=== PATIENT | female | born 1955 | race Caucasian/White ===

== ENCOUNTER 2017-07-29 15:23 | Observation (INO) ==
[2017-07-29] MEDS ORDERED: Ondansetron 4 MG/2 ML VIAL IVP ONE (16:04)
[2017-07-29] MEDS ORDERED: 0.9 % Sodium Chloride 1,000 ML IVC ONE (16:04)
--- NOTE | 2017-07-29 16:06 | Emergency Department Note ---
Disposition Clinical Impression: Nausea vomiting and diarrhea Disposition: Admitted As Inpatient Condition: Fair Referrals: NONE,PCP [Primary Care Provider] - Forms: ED Satisfaction Letter, Work/School Release Time of Disposition: 19:19 Abdominal Pain HPI - General Chief Complaint: ED Abdominal Pain Stated Complaint: N/V/D, abd pain Time Seen by Provider: 07/29/17 15:54 Source: patient Mode of arrival: ambulatory Limitations: no limitations Nursing Notes Reviewed: Yes Vital Signs Reviewed: Yes - History of Present Illness HPI Narrative: 61-year-old who is status post remote renal transplant comes in with nausea vomiting unable keep anything down. She states she felt fine yesterday. Pt Subjective Complaint: abdominal pain Onset (ago): hour(s) Consistency: constant Location: diffuse Pain Severity: moderate Pain Scale: 10 Quality: cramping Radiation: none Migration to: no migration Improves with: nothing Worsens with: nothing Associated symptoms: Reports: nausea, vomiting, diarrhea. Denies: fever Treatments prior to arrival: none - Related Data Allergies Allergy/AdvReac Type Severity Reaction Status Date / Time IVP dye Allergy See Uncoded 07/29/17 15:51 Comments All systems ED: reviewed and negative except as stated. Constitutional: Denies: fever, chills, weakness, weight change Eyes: Denies: eye pain, eye discharge, vision change ENT ED: Denies: ear pain, throat pain, dental pain, hearing loss, epistaxis, congestion, dysphagia Cardiovascular: Denies: chest pain, palpitations, dyspnea on exertion, edema, syncope Respiratory: Denies: cough, dyspnea, wheezes, hemoptysis, stridor Gastrointestinal: Reports: abdominal pain, nausea, vomiting, diarrhea. Denies: constipation, hematemesis, melena, hematochezia Genitourinary: Denies: dysuria, frequency, hematuria, discharge Musculoskeletal: Denies: back pain, neck pain, arthralgia, myalgia Integumentary: Denies: rash, abrasion, lesions Neurological: Denies: headache, weakness, numbness, paresthesias, confusion, abnormal gait, vertigo Psychiatric: Denies: anxiety, depression, suicidal thoughts, homicidal thoughts , auditory hallucinations, visual hallucinations Endocrine: Denies: fatigue Hematological/Lymphatic: Denies: easy bleeding, easy bruising Allergic/Immunologic: Denies: facial swelling, urticaria Abdominal Pain PMH - Past Medical History Medical history: Reports: hypertension, renal disease Psychiatric history: Reports: no psych history - Social History Smoking status: Never smoker Alcohol use: Reports: none Drug use: Reports: none Physical Exam - General Limitations: no limitations General appearance: alert, in no apparent distress - Head Head exam: atraumatic, normocephalic, normal inspection - Eye Eye exam: Present: normal appearance, PERRL, EOMI - ENT ENT exam: normal exam, normal oropharynx, mucous membranes moist - Neck Neck exam: Present: normal inspection, full ROM, trachea midline - Chest Chest inspection: Present: normal inspection, symmetric chest wall rise - Respiratory Respiratory exam: Present: normal lung sounds bilaterally - Cardiovascular Cardiovascular exam: Present: regular rate, normal rhythm, normal heart sounds - Abdominal Exam Abdominal exam: Present: soft, tenderness. Absent: guarding, rebound Abdominal tenderness: Present: diffuse - Extremities Exam Extremities exam: Present: normal inspection, full ROM. Absent: tenderness, pedal edema - Expanded Lower Extremity Exam Neurovascular/Tendon exam: Absent: motor deficit, sensory deficit, tendon deficit Gait: observed and normal - Back Exam Back exam: Present: normal inspection, full ROM. Absent: tenderness - Neurological Exam Neurological exam: Present: alert, oriented X3 - Psychiatric Psychiatric exam: Present: normal affect, normal mood - Skin Skin exam: Present: warm, dry, intact, normal color Course - Reevaluation(s) Reevaluation #1: 61-year-old with persistent nausea vomiting and diarrhea. Appears to be a viral syndrome will admit for IV hydration. Time: 19:47 - Consultations Consultation #1: Discussed with Dr. Brandt, admit. Time: 19:48 Vital Signs Temperature 97.8 F 07/29/17 15:49 Pulse Rate 104 07/29/17 15:49 Respiratory Rate 18 07/29/17 15:49 Blood Pressure 105/70 07/29/17 15:49 O2 Sat by Pulse Oximetry 98 07/29/17 15:49 Temperature 97.8 F 07/29/17 15:49 Pulse Rate 104 07/29/17 15:49 Respiratory Rate 18 07/29/17 15:49 Blood Pressure 105/70 07/29/17 15:49 O2 Sat by Pulse Oximetry 98 07/29/17 15:49 Oxygen Delivery Oxygen Delivery Room Air Abdominal Pain - Lab Data Lab results reviewed: Yes I reviewed the patient's lab results. Result diagrams: 07/29/17 16:25 07/29/17 18:52 Lab Results 07/29/17 07/29/17 07/29/17 Range/Units 16:25 17:09 17:36 WBC 7.1 (4.3-11.1) K/mcL RBC 4.63 (3.82-4.97) M/mcL Hgb 14.2 (11.5-15.4) g/dL Hct 43.5 (35.3-44.9) % MCV 94.0 (83.0-100.0) fL MCH 30.7 (28.0-33.3) pg MCHC 32.6 (31.6-35.5) g/dL RDW 16.2 H (11.5-14.5) % Plt Count 227 (140-400) K/mcL MPV 10.7 (9.4-12.4) fL Immature Gran % 0.3 (0-4) % Seg Neutrophils % 85.9 % Lymphocytes % 7.8 % Monocytes % 4.8 % Eosinophils % 1.1 % Basophils % 0.1 % Neutrophils # 6.1 (1.6-8.9) K/mcL Lymphocytes # 0.6 (0.6-4.6) K/mcL Monocytes # 0.3 (0.0-1.3) K/mcL Eosinophils # 0.1 (0.0-0.6) K/mcL Basophils # 0.0 (0.0-0.2) K/mcL Sodium (136-145) mEq/L Potassium (3.5-5.1) mEq/L Chloride (98-107) mEq/L Carbon Dioxide (23-29) mEq/L BUN (6-20) mg/dL Creatinine (0.60-1.20) mg/dL Est GFR ( Amer) (> 60) Est GFR (Non-Af Amer) (> 60) BUN/Creatinine Ratio (6-26) Glucose (70-105) mg/dL Calculated Osmolality (280-300) Calcium (8.6-10.3) mg/dL Total Bilirubin (0.3-1.0) mg/dL Direct Bilirubin (0.0-0.2) mg/dL Indirect Bilirubin (0.0-1.2) mg/dL AST (13-39) Units/L ALT (7-52) Units/L Alkaline Phosphatase (34-104) Units/L Serum Total Protein (6.4-8.9) g/dL Albumin (3.5-5.7) g/dL Globulin (2.4-3.5) g/dL Albumin/Globulin Ratio (1.1-2.2) Amylase (29-103) Units/L Lipase (11-82) Units/L Urine Color (Yellow) Urine Clarity (Clear) Urine pH (5.0-8.0) pH Units Ur Specific [place] (1.010-1.025) Urine Protein (Neg-Trace) mg/dL Urine Glucose (UA) (Normal) mg/dL Urine Ketones (Negative) mg/dL Urine Blood (Negative) Urine Nitrite (Negative) Urine Bilirubin (Negative) Urine Urobilinogen (Normal) mg/dL Ur Leukocyte Esterase (Negative) Stl C. diff Tox B Gene Negative (Negative) Specimen Rejected Hemolyzed 07/29/17 07/29/17 Range/Units 18:52 19:25 WBC (4.3-11.1) K/mcL RBC (3.82-4.97) M/mcL Hgb (11.5-15.4) g/dL Hct (35.3-44.9) % MCV (83.0-100.0) fL MCH (28.0-33.3) pg MCHC (31.6-35.5) g/dL RDW (11.5-14.5) % Plt Count (140-400) K/mcL MPV (9.4-12.4) fL Immature Gran % (0-4) % Seg Neutrophils % % Lymphocytes % % Monocytes % % Eosinophils % % Basophils % % Neutrophils # (1.6-8.9) K/mcL Lymphocytes # (0.6-4.6) K/mcL Monocytes # (0.0-1.3) K/mcL Eosinophils # (0.0-0.6) K/mcL Basophils # (0.0-0.2) K/mcL Sodium 140 (136-145) mEq/L Potassium 4.0 (3.5-5.1) mEq/L Chloride 109 H (98-107) mEq/L Carbon Dioxide 21 L (23-29) mEq/L BUN 46 H (6-20) mg/dL Creatinine 1.11 (0.60-1.20) mg/dL Est GFR ( Amer) > 60 (> 60) Est GFR (Non-Af Amer) 50 L (> 60) BUN/Creatinine Ratio 41 H (6-26) Glucose 156 H (70-105) mg/dL Calculated Osmolality 305 H (280-300) Calcium 7.7 L (8.6-10.3) mg/dL Total Bilirubin 0.9 (0.3-1.0) mg/dL Direct Bilirubin 0.2 (0.0-0.2) mg/dL Indirect Bilirubin 0.7 (0.0-1.2) mg/dL AST 15 (13-39) Units/L ALT 18 (7-52) Units/L Alkaline Phosphatase 78 (34-104) Units/L Serum Total Protein 6.3 L (6.4-8.9) g/dL Albumin 3.8 (3.5-5.7) g/dL Globulin 2.5 (2.4-3.5) g/dL Albumin/Globulin Ratio 1.5 (1.1-2.2) Amylase 51 (29-103) Units/L Lipase 63 (11-82) Units/L Urine Color Yellow (Yellow) Urine Clarity Cloudy A (Clear) Urine pH 5.0 (5.0-8.0) pH Units Ur Specific [place] 1.019 (1.010-1.025) Urine Protein Negative (Neg-Trace) mg/dL Urine Glucose (UA) Normal (Normal) mg/dL Urine Ketones Negative (Negative) mg/dL Urine Blood Negative (Negative) Urine Nitrite Negative (Negative) Urine Bilirubin Negative (Negative) Urine Urobilinogen Normal (Normal) mg/dL Ur Leukocyte Esterase Trace H (Negative) Stl C. diff Tox B Gene (Negative) Specimen Rejected - Radiology Data Radiology results reviewed: Yes I reviewed the patient's radiology results. Abdomen/Pelvis CT 07/29/17 16:04 IMPRESSION: Large hiatal hernia. Left lower lobe consolidation adjacent to the large hiatal hernia, possibly chronic atelectasis. Correlation for pneumonia is recommended. Mild fatty infiltration of the liver. Cholelithiasis. D/ / Libby Godoy Cha, MD / Libby Godoy Cha, MD Interpreting Provider: Libby Godoy Cha, MD
[2017-07-29 16:37] LABS: Basophils % 0.1 %; Eosinophils # 0.1 K/mcL (0.0-0.6); Eosinophils % 1.1 %; Hematocrit 43.5 % (35.3-44.9); Hemoglobin 14.2 g/dL (11.5-15.4); Immature Granulocytes % 0.3 % (0-4); Lymphocytes # 0.6 K/mcL (0.6-4.6); Lymphocytes % 7.8 %; Mean Corpuscular HGB Conc 32.6 g/dL (31.6-35.5); Mean Corpuscular Hemoglobin 30.7 pg (28.0-33.3); Mean Platelet Volume 10.7 fL (9.4-12.4); Monocytes # 0.3 K/mcL (0.0-1.3); Monocytes % 4.8 %; Neutrophils # 6.1 K/mcL (1.6-8.9); Platelet Count 227 K/mcL (140-400); Red Blood Count 4.63 M/mcL (3.82-4.97); Red Cell Distribution Width 16.2 % (11.5-14.5); Segmented Neutrophils % 85.9 %
[2017-07-29 19:13] LABS: Alanine Aminotransferase 18 Units/L (7-52); Albumin 3.8 g/dL (3.5-5.7); Albumin/Globulin Ratio 1.5 (1.1-2.2); Alkaline Phosphatase 78 Units/L (34-104); Amylase 51 Units/L (29-103); Aspartate Amino Transferase 15 Units/L (13-39); BUN/Creatinine Ratio 41 (6-26); Bilirubin,Direct 0.2 mg/dL (0.0-0.2); Bilirubin,Indirect 0.7 mg/dL (0.0-1.2); Bilirubin,Total 0.9 mg/dL (0.3-1.0); Blood Urea Nitrogen 46 mg/dL (6-20); Calcium 7.7 mg/dL (8.6-10.3); Carbon Dioxide 21 mEq/L (23-29); Chloride 109 mEq/L (98-107); Globulin 2.5 g/dL (2.4-3.5); Glucose 156 mg/dL (70-105); Lipase 63 Units/L (11-82); Osmolality,Calculated 305 (280-300); Sodium 140 mEq/L (136-145); Total Protein 6.3 g/dL (6.4-8.9); eGFR For African Americans > 60 (> 60); eGFR For Non-African Americans 50 (> 60)
[2017-07-29] MEDS ORDERED: *HR* FentaNYL (PF) 100 MCG/2 ML VIAL IVP ONE (19:43)
[2017-07-29] MEDS ORDERED: Acetaminophen 325 MG TABLET PO PRN (19:45)
[2017-07-29] MEDS ORDERED: *HR* Promethazine 25 MG/ML VIAL IVP PRN (19:45)
[2017-07-29] MEDS ORDERED: Ondansetron 4 MG/2 ML VIAL IVP PRN (19:45)
[2017-07-29] MEDS ORDERED: Mag Hydrox/Al Hydrox/Simeth 30 ML UDC PO PRN (19:45)
[2017-07-29] MEDS ORDERED: Naloxone 0.4 MG/ML INJ IVP PRN (19:45)
[2017-07-29] MEDS ORDERED: *HR* HYDROcodone/Acet 5/325 mg TABLET PO PRN (19:45)
[2017-07-29 19:46] LABS: Bilirubin,Urine Negative (Negative); Blood,Urine Negative (Negative); Clarity,Urine Cloudy (Clear); Color,Urine Yellow (Yellow); Glucose,Urine (UA) Normal (Normal); Ketones,Urine Negative (Negative); Leukocyte Esterase,Urine Trace (Negative); Nitrite,Urine Negative (Negative); Protein,Urine Negative (Neg-Trace); Specific Gravity,Urine 1.019 (1.010-1.025); Urobilinogen,Urine Normal (Normal)
[2017-07-29 19:48] LABS: Hyaline Casts,Urine Few per lpf (None-Few); RBC,Urine 0-3 per hpf (0-3); Squamous Epithelial Cell,Urine Many per lpf (None-Few); WBC,Urine 0-3 per hpf (0-3)
[2017-07-29] MEDS: 0.9 % Sodium Chloride 1,000 ML IVC SCH (19:51)
[2017-07-29 20:05] LABS: Bacteria,Urine Moderate per hpf (None-Few)
--- NOTE | 2017-07-29 21:52 | Internal Med History&Physical ---
Date of Encounter: 07/29/17 Time of Encounter: 20:00 Assessment and Plan (1) Nausea vomiting and diarrhea Current visit: Yes Status: Acute Placed the pt into Med Surg for observation Her symptoms seems to be due to viral gastroenteritis cont symptomatic and supportive care we will place on IV hydration on Zofran PRN PO analgesics PRN clear liquid diet (2) Abdominal pain Current visit: Yes Status: Acute epigastric abd pain.. ?? Gastritis however with cholelithiasis, will check U/S of RUQ so far negative lipase and LFT's Qualifiers: Abdominal location: epigastric Qualified Code(s): R10.13 - Epigastric pain (3) Cholelithiasis Current visit: Yes Status: Acute Qualifiers: Qualified Code(s): K80.20 - Calculus of gallbladder without cholecystitis without obstruction (4) Renal transplant, status post Current visit: Yes Status: Acute resume home meds since pt is not able to tolerate PO meds..will switch to IV Solumedrol 20 BID stable Cr (5) HTN (hypertension) Current visit: Yes Status: Acute will resume home meds Qualifiers: Hypertension type: essential hypertension Qualified Code(s): I10 - Essential (primary) hypertension Internal Medicine - H&P: HPI Chief complaint: N/V and Abdominal pain Admitted From: Emergency Dept Plans for Post Hospital Care: Home History of present illness: Ms. Swenson is a 61 year old female with congenital renal disease , s/p Rt renal transplant in currently on chronic immunosuppressive medication with prednisone , now presented to ER with intractable nausea and vomiting with epigastric abdominal pain. She denied any CP / SOB. Her abd pain 4/10 in severity , non radiating, and achy type pain. Her Lipase level @ 63, LFT's are normal. Her CT of abd showed LLL consolidation possible atelectasis vs pneumonia , she does have fatty liver and cholelithiasis. Past Med Surg Social Fam HX - Past Medical History Medical history: hypertension, renal disease Psychiatric history: no psych history - Past Surgical History Surgical History: transplant - Social History Smoking Status: Never smoker Smokeless Tobacco Status: No Alcohol use: none Drug use: none - Family History Mother Living Status: Hx Family Cardiac Disorders: Yes (chf) Hx Family Respiratory Disorders: Yes (copd) Father Living Status: Hx Family Cancer: Yes (lung cancer) Internal Medicine - H&P: Meds 3 Allergy/AdvReac Type Severity Reaction Status Date / Time IVP dye Allergy See Uncoded 07/29/17 15:51 Comments All Systems PM: A 10-system review of systems was performed and is negative for pertinent findings except as documented above in the HPI. Review of systems: All the systems are reviewed everything is benign except the systems and symptoms I mentioned in the history of present illness - Constitutional Vitals: Temp Pulse Resp BP Pulse Ox 98.0 F 104 18 126/81 95 07/29/17 20:36 07/29/17 20:36 07/29/17 20:36 07/29/17 20:36 07/29/17 20:36 General appearance: Present: cooperative, A&O X 3, answers questions appropriately - Head Head exam: Present: atraumatic, normal inspection - Neck Neck exam general surgery: Present: supple - Respiratory Respiratory exam: Present: CTAB. Absent: accessory muscle use, rales, rhonchi, wheezes - Cardiovascular Cardiovascular exam: Present: RRR, +S1, +S2. Absent: diastolic murmur, gallop, rubs, systolic murmur - GI/Abdominal GI/Abdominal exam: Present: normal bowel sounds, soft, tenderness (epigastric region.. Negative martínez's sign). Absent: distended, guarding, rebound, rigid - Extremities Exam Extremities exam: Absent: calf tenderness, pedal edema, tenderness - Back Exam Back exam: Absent: CVA tenderness (L), CVA tenderness (R) - Neurological Exam Neurological exam: Present: alert, oriented X3 - Psychiatric Psychiatric exam: Present: normal affect, normal mood - Skin Skin exam: Absent: rash Internal Med - H&P Results - Labs CBC & Chem 7: 07/29/17 16:25 07/29/17 18:52
[2017-07-29] MEDS ORDERED: *HR* FentaNYL (PF) 100 MCG/2 ML VIAL IVP PRN (22:02)
[2017-07-29] MEDS: MethylPREDNISolone 40 MG/ML VIAL IVP SCH (22:26)
[2017-07-29] MEDS: Pantoprazole 40 MG VIAL IVP SCH (22:26)
[2017-07-30 05:23] LABS: Basophils % 0.1 %; Eosinophils % 0.1 %; Hematocrit 31.5 % (35.3-44.9); Immature Granulocytes % 0.6 % (0-4); Lymphocytes # 0.6 K/mcL (0.6-4.6); Lymphocytes % 8.2 %; Mean Corpuscular HGB Conc 33.7 g/dL (31.6-35.5); Mean Corpuscular Volume 92.1 fL (83.0-100.0); Mean Platelet Volume 11.3 fL (9.4-12.4); Monocytes # 0.2 K/mcL (0.0-1.3); Monocytes % 2.6 %; Nucleated Red Blood Cells 0.3 /100 WBC (0); Platelet Count 119 K/mcL (140-400); Red Blood Count 3.42 M/mcL (3.82-4.97); Segmented Neutrophils % 88.4 %
[2017-07-30] MEDS: 0.9 % Sodium Chloride 1,000 ML IVC SCH ×2 (05:37→18:22)
[2017-07-30] MEDS: Pantoprazole 40 MG VIAL IVP SCH ×2 (05:37→18:20)
[2017-07-30 05:43] LABS: Neutrophils # 6.3 K/mcL (1.6-8.9)
[2017-07-30 05:44] LABS: Hemoglobin 10.6 g/dL (11.5-15.4)
[2017-07-30 05:46] LABS: Platelet Estimate Slight Decrease (Normal)
[2017-07-30 05:47] LABS: Anisocytosis 1+ (Not Present)
[2017-07-30 05:48] LABS: Albumin 3.2 g/dL (3.5-5.7); Albumin/Globulin Ratio 1.5 (1.1-2.2); Bilirubin,Total 0.9 mg/dL (0.3-1.0); Globulin 2.2 g/dL (2.4-3.5); Magnesium 1.1 mg/dL (1.6-2.6); Phosphorous 3.6 mg/dL (2.7-4.5); Potassium 4.4 mEq/L (3.5-5.1); Total Protein 5.4 g/dL (6.4-8.9)
[2017-07-30] MEDS: MethylPREDNISolone 40 MG/ML VIAL IVP SCH (09:58)
--- NOTE | 2017-07-30 11:34 | Internal Med Progress Note ---
<Leif Guardado - Last Filed: 07/30/17 13:35> Date of Encounter: 07/30/17 Time of Encounter: 11:30 - Assessment and plan (1) Viral gastroenteritis Current Visit: Yes Status: Acute Assessment and plan: Symptoms of nausea, vomiting, diarrhea improved with IV fluids and supportive care. Abdominal CT demonstrated large hiatal hernia, left lower lobe consolidation adjacent to the large hiatal hernia possible pneumonia versus atelectasis, mild fatty infiltration of liver, cholelithiasis. Her symptoms likely secondary to viral gastroenteritis cont symptomatic and supportive care Continue IV hydration Continue PPI PO analgesics PRN Patient tolerating clear liquid diet Reconcile home medications Plan for discharge tomorrow. Follow-up outpatient with [facility], PCP. (2) Abdominal pain Current visit: Yes Status: Acute negative lipase and LFT's RUQ abdominal pain likely secondary to gastritis. however with cholelithiasis, follow up on RUQ ultrasound. Qualifiers: Abdominal location: epigastric Qualified Code(s): R10.13 - Epigastric pain (3) Cholelithiasis Current visit: Yes Status: Acute Qualifiers: Qualified Code(s): K80.20 - Calculus of gallbladder without cholecystitis without obstruction Plan as above. (4) Renal transplant, status post Current visit: Yes Status: Acute Patient tolerating PO. Resume home meds Continue to monitor renal function with AM labs. (5) HTN (hypertension) Current visit: Yes Status: Acute will resume home meds (2) Acute kidney injury Current Visit: Yes Status: Acute Assessment and plan: Suspected ABRIL. No baseline creatinine obtainable from records, but creatinine increased > 0.3 compared to yesterday. This could likely be due to IV fluids (3) Drop in hematocrit Current Visit: Yes Status: Acute Assessment and plan: Hemoglobin 14.2/10.6. Likely secondary to IV fluids. Continue to monitor with a.m. labs. No need for acute management at this time (4) DVT prophylaxis Current Visit: Yes Status: Acute Assessment and plan: Patient's H/H drop likely secondary to IVF. Continue to monitor with AM Labs. Heparin for DVT prophylaxis for now. - Time Spent With Patient Greater than 35 minutes - Subjective Interval history: 61-year-old female with past medical history of congenital renal disease, status post right renal transplant in the currently on chronic immunosuppressive medication with prednisone, fatty liver, cholelithiasis, presents with intractable nausea and vomiting for 1 day and epigastric abdominal pain 4 out of 10, nonradiating, achy. Today, she reports improvement of symptoms. She has not vomited since admission. Reports vomit from previous day was nonbilious. She denies any fevers, chills, chest pain, shortness of breath, cough, constipation. She reports improvement of epigastric abdominal pain. Currently 2 out of 10. Denies any history of pulmonary disease. Tolerating clear liquid diet and voiding without difficulty. Last bowel movement was last night and he was watery. Denies noticing any bright blood. Has no further complaints. - Constitutional Vitals: Temp Pulse Resp BP Pulse Ox 98.2 F 97 14 152/79 95 07/30/17 11:16 07/30/17 11:16 07/30/17 11:16 07/30/17 11:16 07/30/17 11:16 General appearance: Present: cooperative, A&O X 3, answers questions appropriately - Head Head exam: Present: atraumatic, normocephalic - Eye Eye exam: Present: PERRL, conjuntiva pink, sclera anicteric Pupils: Present: PERRL - Neck Neck exam general surgery: Present: supple, trachea midline. Absent: lymphadenopathy - Respiratory Respiratory exam: Present: CTAB. Absent: accessory muscle use, rales, rhonchi, wheezes - Cardiovascular Cardiovascular exam: Present: RRR, +S1, +S2. Absent: diastolic murmur, gallop, rubs, systolic murmur - GI/Abdominal GI/Abdominal exam: Present: normal bowel sounds, soft, no peritoneal signs. Absent: distended, tenderness - Extremities Exam Extremities exam: Present: warm, radial pulses palpable and symmetrical. Absent : calf tenderness, cyanotic, pedal edema - Neurological Exam Neurological exam: Present: CN II-XII intact, oriented X3, no focal deficits. Absent: pronater drift, facial droop, speech deficit - Skin Skin exam: Present: dry, intact Internal Medicine: Result - Labs CBC & Chem 7: 07/30/17 05:10 07/30/17 05:10 Labs: Short CBC 07/30/17 Range/Units 05:10 WBC 7.1 (4.3-11.1) K/mcL Hgb 10.6 L D (11.5-15.4) g/dL Hct 31.5 L (35.3-44.9) % Plt Count 119 L (140-400) K/mcL Neutrophils # 6.3 (1.6-8.9) K/mcL BMP 07/30/17 05:10 Sodium 139 Potassium 4.4 Chloride 112 H Carbon Dioxide 18 L BUN 54 H Creatinine 1.42 H Glucose 274 H Calcium 7.0 L Liver Function 07/30/17 Range/Units 05:10 Total Bilirubin 0.9 (0.3-1.0) mg/dL AST 13 (13-39) Units/L ALT 14 (7-52) Units/L Alkaline Phosphatase 61 (34-104) Units/L Albumin 3.2 L (3.5-5.7) g/dL Consult Discharge Plan - Plan Referrals: NONE,PCP [Primary Care Provider] - <Lázaro Jose - Last Filed: 07/30/17 14:53> Date of Encounter: 07/30/17 - Constitutional Vitals: Temp Pulse Resp BP Pulse Ox 98.2 F 106 14 151/85 95 07/30/17 14:38 07/30/17 14:38 07/30/17 14:38 07/30/17 14:38 07/30/17 14:38 Internal Medicine: Result - Labs CBC & Chem 7: 07/30/17 05:10 07/30/17 05:10 Labs: Short CBC 07/30/17 Range/Units 05:10 WBC 7.1 (4.3-11.1) K/mcL Hgb 10.6 L D (11.5-15.4) g/dL Hct 31.5 L (35.3-44.9) % Plt Count 119 L (140-400) K/mcL Neutrophils # 6.3 (1.6-8.9) K/mcL BMP 07/30/17 05:10 Sodium 139 Potassium 4.4 Chloride 112 H Carbon Dioxide 18 L BUN 54 H Creatinine 1.42 H Glucose 274 H Calcium 7.0 L Liver Function 07/30/17 Range/Units 05:10 Total Bilirubin 0.9 (0.3-1.0) mg/dL AST 13 (13-39) Units/L ALT 14 (7-52) Units/L Alkaline Phosphatase 61 (34-104) Units/L Albumin 3.2 L (3.5-5.7) g/dL - Attending Attestation Seen and examined at bedside 07/30 Patient with Likely CKD s/p renal transplant >30 years ago, being managed for gastroenteritis She reports she has not had vomiting since arrival, but loose stools perists, afebrile Physical exam unremarkable She has no chest symptoms, her abd CT showed likely LLL infitrates, she denies any chest complains and her chest is CTAB Other labs unremarkable, Cr 1.45, patient states her baseline is around 1.5 Continue current care, repeat CXR a.m-2 views Rest as in resident physician's documentation
[2017-07-30] MEDS: CycloSPORINE, Mod (Neoral) 25 MG CAPSULE PO SCH ×2 (13:38→21:14)
[2017-07-30] MEDS: FLUoxetine 20 MG CAPSULE PO SCH (13:38)
[2017-07-30] MEDS ORDERED: CLOBETASOL PROPIONATE 15 GM TUBE TP SCH (15:00)
[2017-07-30] MEDS: Magnesium Oxide 400 MG TABLET PO SCH (18:18)
[2017-07-31] MEDS: 0.9 % Sodium Chloride 1,000 ML IVC SCH (03:51)
[2017-07-31] MEDS: Pantoprazole 40 MG VIAL IVP SCH (05:12)
[2017-07-31 05:23] LABS: Hematocrit 28.7 % (35.3-44.9); Hemoglobin 9.3 g/dL (11.5-15.4); Immature Granulocytes % 0.6 % (0-4); Lymphocytes # 0.6 K/mcL (0.6-4.6); Lymphocytes % 12.4 %; Mean Corpuscular HGB Conc 32.4 g/dL (31.6-35.5); Mean Corpuscular Hemoglobin 30.4 pg (28.0-33.3); Mean Corpuscular Volume 93.8 fL (83.0-100.0); Mean Platelet Volume 10.7 fL (9.4-12.4); Monocytes # 0.3 K/mcL (0.0-1.3); Monocytes % 6.4 %; Neutrophils # 4.1 K/mcL (1.6-8.9); Platelet Count 134 K/mcL (140-400); Red Blood Count 3.06 M/mcL (3.82-4.97); Red Cell Distribution Width 15.9 % (11.5-14.5); Segmented Neutrophils % 80.6 %
[2017-07-31 05:38] LABS: Alanine Aminotransferase 12 Units/L (7-52); Albumin/Globulin Ratio 1.4 (1.1-2.2); Alkaline Phosphatase 50 Units/L (34-104); Aspartate Amino Transferase 10 Units/L (13-39); BUN/Creatinine Ratio 38 (6-26); Bilirubin,Total 0.8 mg/dL (0.3-1.0); Blood Urea Nitrogen 33 mg/dL (6-20); Carbon Dioxide 21 mEq/L (23-29); Chloride 112 mEq/L (98-107); Globulin 2.2 g/dL (2.4-3.5); Glucose 190 mg/dL (70-105); Osmolality,Calculated 302 (280-300); Potassium 3.7 mEq/L (3.5-5.1); Sodium 140 mEq/L (136-145); Total Protein 5.2 g/dL (6.4-8.9); eGFR For African Americans > 60 (> 60); eGFR For Non-African Americans > 60 (> 60)
[2017-07-31] MEDS: Magnesium Oxide 400 MG TABLET PO SCH (08:14)
[2017-07-31] MEDS: CycloSPORINE, Mod (Neoral) 25 MG CAPSULE PO SCH (08:14)
[2017-07-31] MEDS: FLUoxetine 20 MG CAPSULE PO SCH (08:14)
[2017-07-31] MEDS ORDERED: (Ezetimibe [Ezetimibe] 10 MG) PO SCH (09:00)
[2017-07-31] MEDS ORDERED: Diltiazem CD (24hr) 180 MG CAPSULE PO SCH (09:00)
[2017-07-31] MEDS ORDERED: Aspirin Enteric Coated 81 MG Tablet PO SCH (09:00)
[2017-07-31] MEDS ORDERED: predniSONE 20 MG TABLET PO SCH (09:00)
[2017-07-31] MEDS ORDERED: Metoprolol XL (24 HR) Succ 50 MG TAB.ER.24H PO SCH (09:00)
--- NOTE | 2017-07-31 14:59 | Discharge Summary ---
<Cleve Benton - Last Filed: 07/31/17 15:30> Date of Encounter: 07/31/17 Time of Encounter: 14:57 - Discharge Diagnosis (1) Viral gastroenteritis Priority: Primary Status: Resolved Comments: Patient symptoms of nausea, vomiting, and diarrhea have resolved with IV fluids and supportive care. Symptoms likely secondary to viral gastroenteritis. Patient states she is feeling improved today and would like to go home. Patient tolerated a renal diet yesterday evening and today without difficulty. Plan is to discharge today with f/u outpatint with neprhologist and PCP. (2) Abdominal pain Priority: Primary Status: Resolved Comments: Patient gallbladder US showed hepatic steatosis, cholelithiasis with no other sonographic findins for acute cholecystitis. RUQ pain has improved on exam, abdominal exam essentially benign. Pt abdomen is soft without tenderness, guarding, rebound, or rigidity. Qualifiers: Abdominal location: epigastric Qualified Code(s): R10.13 - Epigastric pain (3) Cholelithiasis Priority: Secondary Status: Acute Comments: Plan as above. Qualifiers: Cholelithiasis location: gallbladder Cholecystitis presence: without cholecystitis Biliary obstruction: without biliary obstruction Qualified Code(s): K80.20 - Calculus of gallbladder without cholecystitis without obstruction (4) Renal transplant, status post Priority: Secondary Status: Chronic Comments: Patient tolerating PO. Home medications resumed. Renal function has improved as stated in ABRIL below. Cr 0.87, GFR >60. (5) Acute kidney injury Priority: Secondary Status: Resolved Comments: Originally thought to be due to IV fluids. Cr improved from 1.42 to 0.87, BUN 54 to 33, GFR >60. (6) HTN (hypertension) Priority: Secondary Status: Chronic Comments: Resume home medications. Qualifiers: Hypertension type: essential hypertension Qualified Code(s): I10 - Essential (primary) hypertension - Discharge Medications Home Medications: Allopurinol [Zyloprim 300 MG] 100 mg PO TID 07/29/17 [History] Aspirin [Lo-Dose Aspirin EC] 81 mg PO DAILY 07/29/17 [History] Atorvastatin Calcium [Lipitor] 40 mg PO HS 07/29/17 [History] CycloSPORINE, Mod (Neoral) [Neoral] 50 mg PO BID 07/29/17 [History] Diltiazem HCl [Diltiazem 24Hr Cd] 180 mg PO DAILY 07/29/17 [History] Omeprazole [PriLOSEC] 20 mg PO DAILY 07/29/17 [History] predniSONE [PredniSONE] 20 mg PO DAILY 07/29/17 [History] Amitriptyline [Elavil] 50 mg PO BID 07/30/17 [History] Clobetasol Propionate 0.05% [Temovate] 1 appl TP AD 07/30/17 [History] Ezetimibe [Ezetimibe] 10 mg PO DAILY 07/30/17 [History] FLUoxetine HCl [Fluoxetine HCl] 40 mg PO DAILY 07/30/17 [History] Furosemide [Lasix] 10 mg PO BID 07/30/17 [History] Metoprolol Succinate 100 mg PO DAILY 07/30/17 [History] Allergies/Adverse Reactions: 3 Allergy/AdvReac Type Severity Reaction Status Date / Time IVP dye Allergy See Uncoded 07/29/17 15:51 Comments Procedures/tests Complete & Pending: Procedures Performed prior 72 hours Category Date Time Status US gall bladder [US] Routine Exams 07/31/17 08:30 Completed Date of admission: 07/29/17 19:59 Primary care physician: PCP NONE Discharging clinician: Lázaro Jose Anticipated date of discharge: 07/31/17 - Patient Status Disposition: Home, Self-Care Condition: Good Functional capacity at discharge: independent ambulation Overall status at discharge: patient is back to baseline - Discharge Instructions Follow Up With: Karen Vargas [Other] - 08/04/17 11:00 am Additional Instructions: 1. Keep your primary care physician's office appointment for August [id number] at 11 AM. Contact your kidney specialist Dr. Mike for further evaluation and treatment in the next 3-5 days for follow up. 2. Continue your home medications as prescribed. Return to the nearest emergency department if you experiences any worsening of your symptoms such as fever, chills, nausea, vomiting, abdominal pain, diarrhea or any other concerning symptoms return for further evaluation and treatment. - Diet and Activity Activity: increase activity as tolerated, resume usual activities as tolerated Diet: advance to your usual diet Hospital course: Ms. Swenson is a 61 year old female - Time Spent with Patient Total time spent providing and/or coordinating discharge services: - Constitutional Vitals: Temp Pulse Resp BP Pulse Ox 97.6 F 100 15 118/78 94 07/31/17 07:01 07/31/17 07:01 07/31/17 07:01 07/31/17 07:01 07/31/17 07:01 General appearance: Present: cooperative, A&O X 3, answers questions appropriately - Head Head exam: Present: atraumatic, normal inspection, normocephalic - Neck Neck exam general surgery: Present: full ROM, normal inspection - Respiratory Respiratory exam: Present: CTAB. Absent: respiratory distress - Cardiovascular Cardiovascular exam: Present: RRR, +S1, +S2 - GI/Abdominal GI/Abdominal exam: Present: normal bowel sounds, soft, no peritoneal signs. Absent: guarding, rebound, tenderness - Extremities Exam Extremities exam: Present: full ROM, normal inspection, warm. Absent: pedal edema, tenderness - Back Exam Back exam: Present: full ROM, normal inspection - Neurological Exam Neurological exam: Present: alert, normal gait, oriented X3, no focal deficits - Psychiatric Psychiatric exam: Present: normal affect, normal mood - Skin Skin exam: Present: intact, normal color, warm <Lázaro Jose T - Last Filed: 07/31/17 16:03> Date of Encounter: 07/31/17 Procedures/tests Complete & Pending: Procedures Performed prior 72 hours Category Date Time Status US gall bladder [US] Routine Exams 07/31/17 08:30 Completed Date of admission: 07/29/17 19:59 Primary care physician: PCP NONE Hospital course: Ms. Swenson is a 61 year old female - Time Spent with Patient Total time spent providing and/or coordinating discharge services: - Constitutional Vitals: Temp Pulse Resp BP Pulse Ox 97.9 F 92 15 136/84 94 07/31/17 15:10 07/31/17 15:10 07/31/17 15:10 07/31/17 15:10 07/31/17 15:10 - Attending Attestation stable to be discharged home wit follow up with PCP
[2017-07-31 15:11] VITALS: BP 136/84
== END 2017-07-31 17:08 | disposition home or self-care (01) ==
LOC: 3ANU 15:23 → EMEROO 15:23 → 3ANU 20:16
PROVIDERS: ADMIT Internal Medicine Hematology & Oncology; ATTEND Internal Medicine